=== PATIENT | male | born 1965 | race Caucasian/White ===

== ENCOUNTER 2021-12-20 02:17 | Outpatient (CLI) | payer BC, SELFPAY ==
[2021-12-20 10:40] LABS: Hemoglobin A1C 10.5 % (<5.7)
[2021-12-20 10:56] LABS: ALT 40 U/L (16-63); AST 21 U/L (15-37); Albumin 4.1 g/dL (3.4-5.0); Alkaline Phosphatase 105 U/L (46-116); Anion Gap 9.1 mmol/L (3-11); BUN 14 mg/dL (7-18); Bilirubin, Total 0.6 mg/dL (0.2-1.0); CO2 28.9 mmol/L (21.0-32.0); CREATININE 1.1 mg/dL (0.70-1.30); Calcium 9.1 mg/dL (8.5-10.1); Calculated LDL 180 mg/dL (<100); Chloride 99 mmol/L (98-107); Cholesterol 272 mg/dL (<200); Glucose 271 mg/dL (74-106); HDL Cholesterol 53 mg/dL (40-60); Potassium 4.3 mmol/L (3.5-5.1); Sodium 137 mmol/L (136-145); Total Protein 8.1 g/dL (6.4-8.2); Triglyceride 195 mg/dL (<150)
[2021-12-20 11:01] LABS: COMMENT (LAB VIEW ONLY) 219.93 mg/dL
[2021-12-21 11:27] LABS: HIV-1/2 Ag & Ab Screen Negative (Negative)
[2021-12-21 11:30] LABS: Hepatitis C Ab w Rflx HCV PCR Negative (Negative)
== END 2021-12-20 02:18 | disposition home or self-care (01) ==
LOC: LBO 02:17
PROVIDERS: PCP Family Medicine; Visit Provider Family Medicine
DX: E11.9 Type 2 diabetes mellitus without complications (principal); E78.5 Hyperlipidemia, unspecified; I10 Essential (primary) hypertension; Z11.59 Encounter for screening for other viral diseases; Z11.4 Encounter for screening for human immunodeficiency virus [HIV]
CPT/HCPCS: 36415; 80053; 80061; 86803; 87389; 82043; 82570; 83036

== ENCOUNTER 2022-01-13 04:33 | Outpatient (CLI) | payer BC, SELFPAY ==
--- NOTE | 2022-01-13 10:00 | DIABASSESS_ITS ---
Reason for Visit: Medical Nutrition Therapy/Education for Diabetes Assessment: Mr. Morley presents with newly diagnosed type 2 diabetes. His A1C this month was 10.5%. He has started metformin, 500 mg twice daily. His BMI is 29 kg/m2 c/w overweight. He is very physically active outside of his sedentary work. He hikes, skis, bikes regularly. Mr. Morley reports that prior to his diagnosis of diabetes, he didn't pay much attention to what he was eating and his diet was not always very well balanced. Since diagnosis, he is eating a large portion of oatmeal and blueberries in the morning, proteins,vegetables, and healthy fats. Mr. Morley brought in his glucometer which he stated he was not sure how to use. Nutrition Diagnosis: Knowledge deficit regarding carbohydrate counting nutrition therapy for diabetes. Intervention: Acknowledged Mr. Morley's helpful dietary changes that he has made to help with his diabetes. We discussed carbohydrate counting. Provided written materials. Suggested that Mr. Morley have 45 grams of carbohydrate or less, three times per day. Mr. Davis was able to demonstrate meal planning making meals that have 45 grams of carbohydrate. Demonstrated for him how to use his glucometer. Mr. Morley was able to teach back how to check his blood sugars. We discussed that with this new diagnosis, a CGM could helpful in showing us what his blood sugar patterns are. For example, when we checked his blood sugar with the glucometer his BG was 280, four hours after his last meal. Explained that it would be helpful to see what meals work better for him and if his blood sugar runs that high all the time etc. Also, the CGM may also give his healthcare provider insight into what his optimal medication regimen is. Provided him with a sample Dexcom G6 which he stated he would be able to get set up for himself. He agreed to accept the invitation for remote monitoring so that I could see what his blood sugars are doing over the next 10 days. Monitoring and Evaluation: Mr. Morley will return for follow up in ten days following the completion of his CGM data. Will evaluate his data and will support Mr. Morley with relevant action plans to optimize his diabetes management.
== END 2022-01-13 04:34 | disposition home or self-care (01) ==
PROVIDERS: PCP Family Medicine; Visit Provider Dietitian, Registered
DX: E11.9 Type 2 diabetes mellitus without complications (principal); E66.3 Overweight; Z79.84 Long term (current) use of oral hypoglycemic drugs; Z71.3 Dietary counseling and surveillance
CPT/HCPCS: 97802

== ENCOUNTER 2022-03-20 02:30 | Outpatient (CLI) | payer BC, SELFPAY ==
[2022-03-20 09:17] LABS: ALT 29 U/L (16-63); Anion Gap 9.2 mmol/L (3-11); BUN 14 mg/dL (7-18); CO2 28.8 mmol/L (21.0-32.0); CREATININE 1.1 mg/dL (0.70-1.30); Calcium 8.9 mg/dL (8.5-10.1); Calculated LDL 77 mg/dL (<100); Chloride 104 mmol/L (98-107); Cholesterol 150 mg/dL (<200); Glucose 155 mg/dL (74-106); HDL Cholesterol 60 mg/dL (40-60); Potassium 4.3 mmol/L (3.5-5.1); Sodium 142 mmol/L (136-145); Triglyceride 65 mg/dL (<150)
[2022-03-20 11:42] LABS: Hemoglobin A1C 7.9 % (<5.7)
== END 2022-03-20 02:31 | disposition home or self-care (01) ==
LOC: LBO 02:30
PROVIDERS: PCP Family Medicine; Visit Provider Family Medicine
DX: E78.5 Hyperlipidemia, unspecified (principal); E11.9 Type 2 diabetes mellitus without complications
CPT/HCPCS: 36415; 80048; 80061; 83036; 84460

== ENCOUNTER 2022-07-28 07:11 | Day surgery (SDC) | payer BC, SELFPAY ==
--- NOTE | 2022-07-27 18:50 | W.COLOREPORT ---
Colonoscopy Report Date of procedure: 07/28/22 Pre-op diagnosis general: crc screening Post-op diagnosis procedure note: other (Minor diverticula) Surgeon: Varsha Hurtado Anesthesia Type: General:No Airway Estimated blood loss (mL): 0 Pathology: none sent Complications: None Disposition: same day Prep: Miralax/Dulcolax Procedure Description: After informed consent was obtained the patient was taken to the procedure room and placed in a left decubitous position. Monitors were applied and a time out was done. The patients name, date of , procedure, allergies to medications and metal in their body was reviewed. The patient was then sedated. Once sedated and comfortable a rectal exam was done. External exam was normal. Internal exam revealed a normal sphincter tone and no palpable masses. The scope was then introduced and retrofelexed. No internal hemorrhoids were identified. The scope was then advanced to the cecum without difficulty. The TI and appendiceal orifice were identified. The prep was a BB PS 2 in all segments for total of 6 . The scope was then slowly retracted over 8 Minutes back into the rectum. there are no polyps or AVMs identified today. He has minor diverticular disease confined to the sigmoid colon with no signs of active bleeding or infection. the mucosa is pink and healthy with a normal vascular pattern . The scope was removed and the patient was woken up and taken back to Same day surgery in stable condition. The patient tolerated the procedure well and there were no immediate complications. Follow up: The patient should follow up in 10 years unless they develop changes in bowel habits or other new gastrointestinal complaints.
--- NOTE | 2022-07-27 18:51 | PDOC.DSDIS_ITS ---
Discharge Plan Disposition Patient Disposition: HOME Condition: Good Discharge Details Reason For Visit: colon scope Attending Provider: Varsha Hurtado Primary Care Provider: Edouard Vela Home Meds and New Rx's Prescriptions: Continued atorvastatin 20 mg tablet 20 mg PO DAILY Qty: 90 3RF metformin 500 mg tablet 500 mg PO BID Qty: 180 3RF (DME) blood-glucose meter Misc See Rx Instructions .ROUTE .MEDSUPPLY Qty: 1 0RF Rx Instructions: As directed (DME) Blood Glucose Test Strip See Rx Instructions .ROUTE .MEDSUPPLY Qty: 100 3RF Rx Instructions: As directed sildenafil 50 mg tablet 50 mg PO DAILY PRN (Reason: sexual activity) Qty: 10 3RF Rx Instructions: administer 30 minutes to 4 hours before activity ascorbate calcium (vitamin C) 500 mg tablet 500 mg PO DAILY omega 7-hju-slx-fish oil [Fish Oil] 60-90-500 mg capsule 1 cap PO DAILY Ultra CoQ10 75 mg capsule 75 mg PO DAILY Discontinued polyethylene glycol 3350 17 gram/dose powder 238 g PO ONCE Qty: 238 0RF Rx Instructions: take per colonoscopy instructions bisacodyl [Dulcolax (bisacodyl)] 5 mg tablet,delayed release (DR/EC) 5 mg PO ONCE Qty: 4 0RF Rx Instructions: take per colonoscopy instructions Discharge Instructions Additional Instructions: [facility]SU Colonoscopy Post- Op Instructions Instructions for Everyone who is given Anesthesia: For your safety, please do the following for the next twenty-four (24) hours: *Do Not operate a motor vehicle (car, truck, motorcycle, etc.) *Do Not drink alcoholic beverages or use any recreational drugs for the first 24 hours or while taking pain medications. The medications in your body may have a reaction that can be dangerous. *Do Not make any important decisions or sign any important papers. Findings: minor diverticula -Make sure you are moving your bowels on a regular basis and not straining to go to the bathroom. Follow up: Repeat colonoscopy in 10 years time 1. No lifting over 20 pounds or strenuous activity for the first 24 hours after your procedure. After 24 hours there are no restrictions on your activity but you may feel fatigued for a few days. 2. After you arrive home you may have a light meal and return to your normal diet as you can tolerate it without feeling sick to your stomach. 3. You may have a bloated, gaseous feeling in your belly (abdomen) after a colonoscopy. Passing gas and belching will help. Walking or lying down on your left side with your knees flexed may relieve the discomfort. Call the office at [phone] (Office) or [phone] (Hospital) right away if you notice any of the following: a.Vomiting of blood or ?coffee ground stools?. b.Rectal bleeding 1Tbsp, blood clots or continuous bleeding. c.Severe belly (abdominal) pain. d.A hard distended belly (abdomen) and an inability to pass gas. 4. Please don?t expect to have a normal BM (bowel movement) for 2-3 days after your procedure. 5. If there are questions regarding the findings of your procedure, please contact your doctor 6. If you are unable to contact your doctor with a problem, contact the hospital at [phone]. 7. Continue all your regular medications unless directed otherwise. I understand the above instructions and have no questions. Signature of Patient or Adult Escort Name of Responsible Adult Escort Signature of Nurse Date/Time Activity:: see above Diet:: see above Discharge Orders Discharge Orders: Discharge Order (Routine); Ordered 07/27/22 Ordered By: Varsha Hurtado DS: Diagnosis Discharge Diagnosis (1) Diverticula of colon: Status: Acute
[2022-07-28 07:49] VITALS: BP 112/84; PULSE 66; RESP 16; TEMP 36.6; O2SAT 97
[2022-07-28] MEDS: Lactated Ringers 1,000 ML 80 ML IV (08:02)
--- NOTE | 2022-07-28 08:19 | ANES.PREOP_ITS ---
General Info Date of Service Date Performed: 07/28/22 Height: 6 ft 1 in Weight: 91.8 kg Body Mass Index (BMI): 26.6 Surgical Procedure: Operation Date: 07/28/22 08:20 Proposed Procedure Side Surgeon sami Hurtado, DO Meds Allergies and Home Medications Allergies Allergy/AdvReac Type Severity Reaction Status Date / Time No Known Allergies Allergy Verified 07/28/22 07:48 Home Medication Medication Instructions Recorded sildenafil 50 mg tablet 50 mg PO DAILY PRN sexual activity 12/12/21 #10 tabs atorvastatin 20 mg tablet 20 mg PO DAILY #90 tabs 01/03/22 blood sugar diagnostic (Blood #100 ea 01/03/22 Glucose Test strips) blood-glucose meter #1 ea 01/03/22 metformin 500 mg tablet 500 mg PO BID #180 tabs 01/03/22 ascorbate calcium (vitamin C) 500 500 mg PO DAILY 06/30/22 mg tablet coenzyme Q10 75 mg capsule (Ultra 75 mg PO DAILY 06/30/22 CoQ10) omega 8-ism-fuw-fish oil 60 mg-90 1 cap PO DAILY 06/30/22 mg-500 mg capsule (Fish Oil) Current Visit Medications: Current Medications Generic Name Dose Route Start Last Admin Trade Name Freq PRN Reason Stop Dose Admin Hyoscyamine Sulfate 0.125 mg 07/27/22 18:49 Hyoscyamine 0.125 Mg Sl/Oral/Chew SL DIRECTED PRN Ringer's Solution 1,000 mls @ 80 mls/hr 07/28/22 06:00 07/28/22 08:02 IV 08/26/22 23:59 80 mls/hr INFUSION LAZARO Administration IV Miscellaneous Supplies 1 each 07/28/22 06:00 Iv Access IV 08/26/22 23:59 DIRECTED LAZARO Ondansetron HCl 4 mg 07/27/22 18:49 Ondansetron 4 Mg/2 Ml Vial IVP Q4H PRN PRN Nausea / Vomiting Sodium Chloride 0 ml 07/28/22 06:00 Normal Saline Flush 10 Ml Syr IV 08/26/22 23:59 PRN PRN Sodium Chloride 0 ml 07/28/22 06:00 Normal Saline 10 Ml Vial IJ 08/26/22 23:59 DIRECTED PRN Sterile Water 0 ml 07/28/22 06:00 Water,Injection,Sterile 10 Ml Vial IJ 08/26/22 23:59 DIRECTED PRN PFSH Active Problems Active Problems: Problem Status Onset Code Diabetes mellitus E11.9 Hyperlipidemia E78.5 Erectile dysfunction N52.9 Medical History Medical History Hernia Surgical History Surgical History (Updated 07/28/22 @ 07:49 by Jennifer King) History of vasectomy S/P hernia surgery ventral Tobacco Smoking/Tobacco Use Status: Former Tobacco Use Smokeless tobacco user: snuff Alcohol Alcohol Intake: current Alcohol intake frequency: holidays/special occasions only Alcohol type: beer Substance Use Substance use: Never Substance use type: does not use Vital Signs and Lab Results Vital Signs Most Recent Vital Signs in EMR: Most Recent Vital Signs Temp Pulse Resp BP Pulse Ox 36.6 C 66 16 112/84 97 07/28/22 07:49 07/28/22 07:49 07/28/22 07:49 07/28/22 07:49 07/28/22 07:49 Lab Results Blood Type / Crossmatch: No Data to Display Complete Blood Count: No Data to Display Complete Metabolic Panel: No Data to Display Liver Function Panel: 2 No Data to Display Coagulation Panel: No Data to Display Cardiac Panel: No Data to Display Arterial Blood Gas: No Data to Display Venous Blood Gas: No Data to Display Pancreas Panel: No Data to Display Thyroid Panel: No Data to Display Infectious Disease: No Data to Display Blood Cultures: No Data to Display Toxicology Panel: No Data to Display Anesthesia Assessment and Plan Anesthesia History Personal History: No History of Anesthesia Complications Family History: No Family History of Anesthesia Complications Exercise Tolerance Exercise Tolerance: Metabolic Equivalents>4 Pertinent Negatives Pertinent Negatives: No Symptoms of GERD, No Major Cardiovascular Symptoms or Complaints and No Major Pulmonary Symptoms or Complaints Cardiac & Pulmonary Exam Cardiac Exam: Normal S1/S2 Heart Sounds Pulmonary Exam: Clear Bilateral Breath Sounds Implantable Cardiac Device Does patient have a Pacemaker or an ICD?: No Airway Exam Known Difficult Airway: No Mallampati Class: 2 Mouth Opening: Normal (> 3cm) Thyromental Distance: Greater than 3 cm Neck Range of Motion: Full ROM Neck Circumference: Normal Teeth Condition: Removable Dentures/Plates Upper, Removable Dentures/Plates Lower and Edentulous ASA Classification ASA Score: ASA 2 Emergency Case?: No NPO Status NPO Status: NPO Clears >2 hours, Solids >8 hours Anesthesia Plan Resuscitation Status: Full Code Anesthesia Technique: General Anesthesia Airway Planned: Natural Airway Monitors Used: Standard Monitors
[2022-07-28 08:21] VITALS: BMI 26.6
[2022-07-28 09:10] VITALS: BP 99/72; PULSE 63; RESP 16; TEMP 36.2; O2SAT 96
--- NOTE | 2022-07-28 09:32 | W.ANESPOSTOP ---
Postoperative Evaluation Date, Time and Location Date Performed: 07/28/22 Time Performed: 09:32 Patient Location: Day Surgery Unit Vital Signs Most Recent Imported Vital Signs: Most Recent Vital Signs Temp Pulse Resp BP Pulse Ox 36.2 C L 63 16 99/72 L 96 07/28/22 09:10 07/28/22 09:10 07/28/22 09:10 07/28/22 09:10 07/28/22 09:10 Pain Score Most Recent Pain Score: Most Recent Pain Score Pain Level 0 07/28/22 09:10 Assessment Mental Status: Awake (Alert & Oriented to Patient Baseline) Airway and Respiratory Function: Patent airway with normal (patient baseline) respiratory exam Cardiovascular Function: Hemodynamically Stable Hydration Status: Adequately Hydrated Nausea & Vomiting: No Nausea or Vomiting Pain: Pt. Denies Any Pain Peripheral Nerve Block: Patient did not receive a nerve block
[2022-07-28 09:33] VITALS: BP 110/78; PULSE 53; RESP 16; TEMP 36.3; O2SAT 98
== END 2022-07-28 10:09 | disposition home or self-care (01) ==
PROVIDERS: PCP Nurse Practitioner Family; Visit Provider Surgery
PROC: 0DJD8ZZ Inspection of Lower Intestinal Tract, Via Natural or Artificial Opening Endoscopic (ICD-10-PCS; CPT 45378; principal; 2022-07-28 08:15)
DX: Z12.11 Encounter for screening for malignant neoplasm of colon (principal); K57.30 Diverticulosis of large intestine without perforation or abscess without bleeding
CPT/HCPCS: 45378

== ENCOUNTER 2023-05-01 02:09 | Outpatient (CLI) | payer BC, SELFPAY ==
[2023-05-01 10:55] LABS: Hemoglobin A1C 6.3 % (<5.7)
[2023-05-01 11:14] LABS: COMMENT (LAB VIEW ONLY) 136.11 mg/dL; Microalb ug/mg Crea 5.2 ug/mg Cr
== END 2023-05-01 02:10 | disposition home or self-care (01) ==
LOC: LOS 02:09
PROVIDERS: PCP Nurse Practitioner Family; Visit Provider Nurse Practitioner Family
DX: E11.9 Type 2 diabetes mellitus without complications (principal)
CPT/HCPCS: 36415; 82043; 82570; 83036

== ENCOUNTER 2025-02-13 00:56 | Outpatient (CLI) | payer BC, SELFPAY ==
[2025-02-13 09:30] LABS: Calculated LDL 80 mg/dL (<100); Cholesterol 157 mg/dL (<200); HDL Cholesterol 54 mg/dL (>or=40); Triglyceride 116 mg/dL (<150)
[2025-02-13 22:18] LABS: PSA, Screening 0.6 ng/mL (<=3.5)
== END 2025-02-13 00:57 | disposition home or self-care (01) ==
LOC: LBO 00:56
PROVIDERS: PCP Nurse Practitioner Family; Visit Provider Nurse Practitioner Family
DX: Z12.5 Encounter for screening for malignant neoplasm of prostate (principal); Z13.220 Encounter for screening for lipoid disorders
CPT/HCPCS: 36415; 80061; 84153